=== PATIENT | female | born 1970 | race African-American/Black ===

== ENCOUNTER 2017-05-15 01:13 | Emergency (ER) | payer SELFPAY ==
[~2017-05-15] VITALS: Ht 160 cm; Wt 72.7 kg
[2017-05-15] MEDS ORDERED: LORA10TA7 PO (01:21)
[2017-05-15 02:40] VITALS: BP 132/62
== END 2017-05-15 03:52 | disposition left against medical advice (07) ==
LOC: EMS 01:14
DX: M25.511 Pain in right shoulder (principal); Z53.21 Procedure and treatment not carried out due to patient leaving prior to being seen by health care provider